=== PATIENT | male | born 1950 | race Caucasian/White ===

== ENCOUNTER 2017-05-12 14:17 | Emergency (ER) | payer MEDICARE, OTHER ==
[~2017-05-12] VITALS: Ht 167.6 cm; Wt 70.0 kg
[2017-05-12 14:21] VITALS: Ht 167.6 cm; Wt 70.0 kg
--- NOTE | 2017-05-12 14:48 | ERD ---
ER Documentation Chief Complaint Date/Time DATE: 05/12/17 TIME: 14:46 Chief Complaint ETOH FOUND ON THE SIDE OF A STREET HPI This is a 67-year-old male who is brought to the emergency room by EMS after he was found near a [place] of [employer] building. The patient is presumed to have drinking alcohol. He does states that he drank alcohol earlier today and denies any homicidal suicidal ideation ROS All systems reviewed and are negative except as per history of present illness. Allergies Allergies: Coded Allergies: No Known Allergies (Verified Allergy, Unknown, 05/22/15) PMhx/Soc Anesthesia Reaction: No Hx Neurological Disorder: No Hx Respiratory Disorders: Yes (EMPHYSEMA, COPD, PNEUMONIA) Hx Cardiac Disorders: No Hx Psychiatric Problems: No Hx Miscellaneous Medical Probl: No Hx Alcohol Use: Yes Hx Substance Use: No Hx Tobacco Use: No Smoking Status: Never smoker Physical Exam Vitals Vital Signs Date Time Temp Pulse Resp B/P Pulse Ox O2 Delivery O2 Flow Rate FiO2 05/12/17 14:21 97.8 96 18 133/83 97 Physical Exam Const: Disheveled appearance Head: Atraumatic Eyes: Normal Conjunctiva ENT: Normal External Ears, Nose and Mouth. Neck: Full range of motion..~ No meningismus. Resp: Clear to auscultation bilaterally Cardio: Regular rate and rhythm, no murmurs Abd: Soft, non tender, non distended. Normal bowel sounds Skin: No petechiae or rashes Back: No midline or flank tenderness Ext: No cyanosis, or edema Neur: Awake and alert Psych: Normal Mood and Affect Procedures/MDM This 67-year-old male presents to the ER for alcohol ingestion. The patient will be observed in the emergency room and when he is clinically sober he will be discharged. Patient is denying homicidal suicidal ideation. Departure Diagnosis: Primary Impression: Alcohol abuse Condition: Stable SHARIFYEGERARDO MARLOW May 12, 2017 14:47
== END 2017-05-12 16:35 | disposition home or self-care (01) ==
LOC: FTE 14:17
DX: F10.10 Alcohol abuse, uncomplicated (principal); J44.9 Chronic obstructive pulmonary disease, unspecified
CPT/HCPCS: 82962; 99283

== ENCOUNTER 2019-02-21 17:25 | Emergency (ER) | payer MEDICARE, OTHER ==
[~2019-02-21] VITALS: Ht 208.3 cm; Wt 65.9 kg
[2019-02-21 17:31] VITALS: Ht 208.3 cm; Wt 65.9 kg
[2019-02-21] MEDS ORDERED: LORAZEPAM 2 MG INJ IV STA (17:33)
[2019-02-21] MEDS ORDERED: SOD CHLORIDE 0.9% 1,000 ML IV STA (17:33)
[2019-02-21] MEDS ORDERED: MAGNESIUM SULFATE 2 GM, MULTIVITAMINS 10 ML, THIAMINE 100 MG, FOLIC ACID 1 MG in SOD CH... IV STA (17:33)
[2019-02-21] MEDS ORDERED: HALOPERIDOL 5 MG INJ IV ONE (18:30)
--- NOTE | 2019-02-21 19:25 | ERD ---
ER Documentation Chief Complaint Chief Complaint ETOH.Pt REFUSED TO GET UP FROM THE FLOOR CALLED 911 HPI This is a 61-year-old male with a past medical history of metastatic prostate carcinoma. The states the patient has a history of alcohol abuse. The states that the patient is a DO NOT RESUSCITATE with comfort measures only but has refused all treatment and since then has been consuming a significant amount of alcohol. He has no suicidal homicidal thoughts or ideations. The indicated the patient had been found on the floor and refused to get up. He was alert and awake and screaming. Was asking for more alcohol. EMS stated there is no signs of trauma or drug paraphernalia. The patient is very agitated and flailing around on the floor. This was a carpeted surface. The patient denies a headache. He denies any hemoptysis hematemesis or melanotic stools. ROS All systems reviewed and are negative except as per history of present illness. Allergies Allergies: Coded Allergies: No Known Allergies (Verified Allergy, Unknown, 05/22/15) PMhx/Soc Anesthesia Reaction: No Hx Neurological Disorder: No Hx Respiratory Disorders: Yes (EMPHYSEMA, COPD, PNEUMONIA) Hx Cardiac Disorders: No Hx Psychiatric Problems: No Hx Miscellaneous Medical Probl: Yes (HEP C,GASTRIC CA) Hx Alcohol Use: Yes Hx Substance Use: No Hx Tobacco Use: No Smoking Status: Never smoker Physical Exam Vitals Vital Signs Date Temp Pulse Resp B/P (MAP) Pulse Ox O2 O2 Flow FiO2 Time Delivery Rate 02/21/19 97.1 67 22 136/84 99 17:31 (101) Physical Exam Constitutional:Well-developed. Well-nourished. HEENT:Normocephalic. Atraumatic with no nasal septal hematoma no hem otympanum.Pupils were equal round reactive to light. Very dry mucous membranes.No tonsillar exudates. Neck: No nuchal rigidity. No lymphadenopathy. No posterior cervical spine tenderness or step-offs. Respiratory: Not using accessory muscles of respiration.Lungs were clear to auscultation bilaterally. No rhonchi. No rales. No wheezing. Cardiovascular: Regular rate regular rhythm.No murmurs. No rubs were appreciated.S1, S2 normal. Distal pulses are palpable 2+ bilaterally. GI: Abdomen was soft. Nontender. Non Distended. No pulsatile abdominal masses or bruits. No rebound. No guarding. Bowel sounds were present and normal. Muscle skeletal: Full range of motion of both the upper and lower extremities bilaterally.Normal muscle tone.No assymetrical calf tenderness or swelling. Skin: No petechia, no purpura. No lesions on the palms or the soles of the feet. No maculopapular rash. NEURO: Patient was alert, awake, orientated x3.No facial droop. Gait not observed as patient refused Ambien.Speech had regular rate and rhythm. No focal neurological deficits. PSYCH: Patient was screaming. He stated he wanted to lie on the floor. He stated "take care of my ." He denied any suicidal homicidal thoughts ideations. Patient smells of alcohol. Result Diagram: 02/21/19180302/21/191803 Results 24 hrs Laboratory Tests Test 02/21/19 18:04 White Blood Count 9.8 10^3/ul Red Blood Count 5.46 10^6/ul Hemoglobin 15.0 g/dl Hematocrit 46.6 % Mean Corpuscular Volume 85.3 fl Mean Corpuscular Hemoglobin 27.5 pg Mean Corpuscular Hemoglobin Concent 32.2 g/dl Red Cell Distribution Width 13.8 % Platelet Count 301 10^3/UL Mean Platelet Volume 10.2 fl Immature Granulocytes % 0.200 % Neutrophils % 57.6 % Lymphocytes % 35.2 % Monocytes % 5.0 % Eosinophils % 1.1 % Basophils % 0.9 % Nucleated Red Blood Cells % 0.0 /100WBC Immature Granulocytes # 0.020 10^3/ul Neutrophils # 5.7 10^3/ul Lymphocytes # 3.5 10^3/ul Monocytes # 0.5 10^3/ul Eosinophils # 0.1 10^3/ul Basophils # 0.1 10^3/ul Nucleated Red Blood Cells # 0.0 10^3/ul Prothrombin Time 12.1 Sec Prothrombin Time Ratio 0.9 INR International Normalized Ratio 0.89 Activated Partial Thromboplast Time 27.4 Sec Sodium Level 149 mmol/L Potassium Level 3.7 mmol/L Chloride Level 111 mmol/L Carbon Dioxide Level 26 mmol/L Anion Gap 12 Blood Urea Nitrogen 15 mg/dl Creatinine 0.85 mg/dl Est Glomerular Filtrat Rate mL/min > 60 mL/min Glucose Level 82 mg/dl Calcium Level 10.0 mg/dl Total Bilirubin 0.2 mg/dl Direct Bilirubin 0.00 mg/dl Indirect Bilirubin 0.2 mg/dl Aspartate Amino Transf (AST/SGOT) 28 IU/L Alanine Aminotransferase (ALT/SGPT) 19 IU/L Alkaline Phosphatase 108 IU/L Total Protein 7.9 g/dl Albumin 4.6 g/dl Globulin 3.30 g/dl Albumin/Globulin Ratio 1.39 Salicylates Level < 1.0 mg/dl Acetaminophen Level < 10.0 ug/ml Ethyl Alcohol Level 272.0 mg/dl Current Medications Medications Dose Sig/Elizabeth Start Time Status Last (Trade) Ordered Route PRN Stop Time Admin Dose Reason Admin Sodium 1,000 ml @ Q1H STAT 02/21/19 DC 02/21/19 Chloride 1,000 mls/hr IV 17:33 18:13 02/21/19 18:32 Magnesium 1,015.2 ml Q2H2M STAT 02/21/19 Sulfate 2 @ 500 mls/ IV 17:33 gm/ hr 02/21/19 19:34 Multivitamins 10 ml/Thiamine HCl 100 mg/Folic Acid 1 mg/Sodium Chloride Lorazepam 2 mg ONCE STAT 02/21/19 DC 02/21/19 (Ativan) IV 17:33 18:07 02/21/19 17:35 Haloperidol 5 mg ONCE ONCE 02/21/19 DC 02/21/19 (Haldol) IV 18:30 18:51 02/21/19 18:31 Procedures/MDM This is a 61-year-old male that presented to the emergency department acute alcohol intoxication. Patient also showed signs of clinical dehydration. Patient was very agitated and started to become aggressive with nursing staff. Verbal de-escalation was unable to calm the patient down. He was given IV Ativan 2 mg. However the patient still was screaming and attempting to remove life-saving devices. The patient at this time was given Haldol. His serum ethanol was elevated 277. He was hyponatremic thought to be secondary to hypovolemia hyponatremia. He received a liter bolus of normal saline. He will also receive a banana bag. He will remain in the emergency department until clinical sobriety. Departure Diagnosis: Primary Impression: Alcoholic intoxication Complication of substance-induced condition: uncomplicated Qualified Codes: F10.920 - Alcohol use, unspecified with intoxication, uncomplicated Additional Impression: Toxic encephalopathy Condition: CORKY Calderon MD Feb 21, 2019 19:25
[2019-02-21] MEDS ORDERED: LORAZEPAM 2 MG INJ IM ONE (20:00)
[2019-02-21 21:59] VITALS: BP 132/84; PULSE 78; RESP 16
== END 2019-02-21 22:00 | disposition home or self-care (01) ==
LOC: E/R 17:25
DX: F10.920 Alcohol use, unspecified with intoxication, uncomplicated (principal); J44.9 Chronic obstructive pulmonary disease, unspecified; G92 Toxic encephalopathy; T51.94XA Toxic effect of unspecified alcohol, undetermined, initial encounter; Z85.028 Personal history of other malignant neoplasm of stomach
CPT/HCPCS: 70450; 80053; 80307; 85025; 85610; 85730; J1630; J2060; J3411; J3475; J7030; 96372; 96374; 96375